=== PATIENT | male | born 1970 | race African-American/Black ===

== ENCOUNTER 2021-03-17 16:23 | Emergency (ER) | payer OTHER ==
[2021-03-17 17:36] VITALS: BP 134/68; PULSE 89; TEMP 99.6; BMI 32.8
[2021-03-19 10:06] LABS: SARS-CoV-2 NAA Detected (Not Detected)
== END 2021-03-17 18:55 | disposition home or self-care (01) ==
LOC: JER 16:23
DX: J06.9 Acute upper respiratory infection, unspecified (principal)
CPT/HCPCS: 87804; 87807; 99283-25; C9803; U0003; U0005

== ENCOUNTER 2023-04-30 10:07 | Emergency (ER) | payer OTHER ==
[2023-04-30 10:13] VITALS: BP 143/96; PULSE 56; RESP 18; TEMP 99; BMI 32.7
[2023-04-30] MEDS ORDERED: TETRACAINE 0.5% OPHTH SOLN 2 ML BOTTLE ONE (11:26)
[2023-04-30] MEDS: TETRACAINE 0.5% OPHTH SOLN 2 ML BOTTLE OD ONE (11:27)
[2023-04-30] MEDS ORDERED: FLUORESCEIN NA 1 EA STRIP ONE (11:28)
[2023-04-30] MEDS: FLUORESCEIN NA 1 EA STRIP OD ONE (11:29)
== END 2023-04-30 11:58 | disposition home or self-care (01) ==
LOC: JERFT 10:07
DX: S05.01XA Injury of conjunctiva and corneal abrasion without foreign body, right eye, initial encounter (principal); W22.8XXA Striking against or struck by other objects, initial encounter; Y93.E5 Activity, floor mopping and cleaning; Y92.219 Unspecified school as the place of occurrence of the external cause
CPT/HCPCS: 99283-25

== ENCOUNTER 2023-11-16 18:54 | Emergency (ER) | payer OTHER ==
[2023-11-16 19:16] VITALS: BMI 36.5
[2023-11-16] MEDS ORDERED: LIDOCAINE 1%/EPI 1:100000 (20 ML MULTI DOSE VIAL) ONE (19:58)
[2023-11-16 22:24] LABS: HIV INTERPRETATION NEGATIVE (NEGATIVE)
[2023-11-16] MEDS ORDERED: BACITRACIN ZINC 15 GM TUBE TOPICAL OINTMENT ONE (22:45)
[2023-11-16] MEDS: BACITRACIN 0.9 GM PACKET TP ONE (22:53)
[2023-11-16] MEDS: LIDOCAINE 1.5%-EPINEPHRINE 1:200,000/PF 30 ML VIAL INF ONE (22:53)
[2023-11-16] MEDS ORDERED: BACITRACIN 0.9 GM PACKET ONE (23:05)
[2023-11-16 23:42] VITALS: BP 122/76; PULSE 80; RESP 19; TEMP 98.9
== END 2023-11-16 23:42 | disposition home or self-care (01) ==
LOC: JER 18:54
PROC: 0YQHXZZ Repair Right Lower Leg, External Approach (ICD-10-PCS; principal; 2023-11-16)
DX: S81.811A Laceration without foreign body, right lower leg, initial encounter (principal); W25.XXXA Contact with sharp glass, initial encounter
CPT/HCPCS: 36415; 86803; 87389; 99283-25

== ENCOUNTER 2023-11-26 13:46 | Emergency (ER) | payer OTHER ==
[2023-11-26 13:51] VITALS: BP 131/80; PULSE 74; RESP 16; TEMP 97.3; BMI 31.9
[2023-11-26] MEDS ORDERED: CEPHALEXIN MONOHYDRATE 500 MG CAPSULE (UD) ONE (15:37)
[2023-11-26] MEDS ORDERED: ACETAMINOPHEN 500 MG TABLET (FP) ONE (15:37)
[2023-11-26] MEDS: ACETAMINOPHEN 500 MG TABLET (FP) PO ONE (15:39)
[2023-11-26] MEDS: CEPHALEXIN MONOHYDRATE 500 MG CAPSULE (UD) PO ONE (15:39)
[2023-11-26] MEDS: BACITRACIN ZINC 15 GM TUBE TOPICAL OINTMENT TP ONE (15:50)
[2023-11-26] MEDS ORDERED: BACITRACIN ZINC 15 GM TUBE TOPICAL OINTMENT ONE (15:50)
== END 2023-11-26 16:53 | disposition home or self-care (01) ==
LOC: JERFT 13:46
DX: L03.116 Cellulitis of left lower limb (principal); Z48.02 Encounter for removal of sutures
CPT/HCPCS: 99283-25

== ENCOUNTER 2023-11-30 08:18 | Observation (INO) | payer OTHER ==
[2023-11-30 08:25] VITALS: BMI 36.5
[2023-11-30] MEDS ORDERED: KETOROLAC TROMETHAMINE 30 MG/1 ML VIAL ONE (09:52)
[2023-11-30] MEDS ORDERED: AMPICILLIN NA/SULBACTAM NA 3 GM/100 ML BAG IVPB ONE (09:53)
[2023-11-30] MEDS: AMPICILLIN NA/SULBACTAM NA 3 GM in SODIUM CHLORIDE 100 ML IVPB ONE (10:02)
[2023-11-30] MEDS: KETOROLAC TROMETHAMINE 30 MG/1 ML VIAL IVPUSH ONE (10:02)
[2023-11-30 10:34] LABS: BASO % 0.5 % (0-2.0); EOS % 1.5 % (0-4.5); HEMATOCRIT 44.9 % (35.4-49); HEMOGLOBIN 15.6 GM/dL (11.7-16.9); LYMPH % 17.9 % (8-40); MCH 30.5 pg (25.7-33.7); MCHC 34.8 g/dl (32.0-35.9); MEAN CELL VOLUME 87.9 fl (80-96); MEAN PLT VOLUME 9.8 fl (7.5-11.1); MONO % 6.3 % (3.8-10.2); NEUT % 73.8 % (42.8-82.8); PLATELET COUNT 170 10^3/uL (134-434); WHITE BLOOD COUNT 5.2 K/mm3 (4.0-10.0)
[2023-11-30 11:07] LABS: CHLORIDE 104 mmol/L (98-107); SODIUM 138 mmol/L (136-145)
[2023-11-30 11:11] LABS: CALCIUM 9.1 mg/dL (8.5-10.1)
[2023-11-30 11:12] LABS: ANION GAP 4 mmol/L (4-13); BLOOD UREA NITROGEN 15.1 mg/dL (7-18); CO2 30 mmol/L (21-32); GLUCOSE,RANDOM 90 mg/dL (74-106)
[2023-11-30] MEDS ORDERED: amLODIPine BESYLATE 2.5 MG TABLET (FP) ONE (12:34)
[2023-11-30] MEDS: amLODIPine BESYLATE 2.5 MG TABLET (FP) PO SCH (12:35)
[2023-11-30] MEDS ORDERED: ACETAMINOPHEN 325 MG TABLET (FP) PO PRN (12:54)
[2023-11-30] MEDS ORDERED: CLINDAMYCIN 600MG PREMIX IVPB 600 MG/50 ML BAG IVPB ONE (18:01)
[2023-11-30] MEDS: CLINDAMYCIN 600MG PREMIX IVPB 600 MG/50 ML BAG IVPB SCH (18:01)
[2023-11-30 22:44] VITALS: RESP 18
[2023-12-01] MEDS: ENOXAPARIN NA (PORCINE) 40 MG/0.4 ML DISP.SYRIN SQ SCH (09:58)
[2023-12-01 10:02] LABS: HEMATOCRIT 43.9 % (35.4-49); HEMOGLOBIN 14.7 GM/dL (11.7-16.9); MCH 30.1 pg (25.7-33.7); MCHC 33.6 g/dl (32.0-35.9); MEAN CELL VOLUME 89.5 fl (80-96); MEAN PLT VOLUME 9.3 fl (7.5-11.1); PLATELET COUNT 158 10^3/uL (134-434); RDW 13.9 % (11.9-15.9); WHITE BLOOD COUNT 4.9 K/mm3 (4.0-10.0)
[2023-12-01 10:28] LABS: POTASSIUM 4.2 mmol/L (3.5-5.1)
[2023-12-01 10:33] LABS: CALCIUM 9.2 mg/dL (8.5-10.1)
[2023-12-01 10:34] LABS: BLOOD UREA NITROGEN 17.6 mg/dL (7-18)
[2023-12-01 14:21] VITALS: BP 127/83; PULSE 60; TEMP 97.2
[2023-12-01] MEDS: ASPIRIN 81 MG CHEWABLE TABLETS PO ONE (14:21)
[2023-12-01] MEDS: CEFTRIAXONE 1 GM in DEXTROSE 5%-WATER - 50 ML IVPB SCH (14:21)
[2023-12-02] MEDS ORDERED: ASPIRIN 81 MG CHEWABLE TABLETS PO SCH (10:00)
== END 2023-12-01 17:30 | disposition home or self-care (01) ==
LOC: JER 08:18 → JERFT 08:18 → INTOOBSV 09:34 → JERBED 09:34 → UNDOADMOB 09:34 → JERBED 11:49 → J5S 18:56
PROVIDERS: ADMIT Internal Medicine; ATTEND Internal Medicine
PROC: 3E03329 Introduction of Other Anti-infective into Peripheral Vein, Percutaneous Approach (ICD-10-PCS; principal; 2023-11-30)
PROC: 3E023GC Introduction of Other Therapeutic Substance into Muscle, Percutaneous Approach (ICD-10-PCS; 2023-11-30)
PROC: 3E0333Z Introduction of Anti-inflammatory into Peripheral Vein, Percutaneous Approach (ICD-10-PCS; 2023-11-30)
DX: L03.116 Cellulitis of left lower limb (principal); S81.802D Unspecified open wound, left lower leg, subsequent encounter; X58.XXXD Exposure to other specified factors, subsequent encounter; I10 Essential (primary) hypertension
CPT/HCPCS: 36415; 73590-TC-LT-FY; 80048; 80061; 83036; 85025; 85027; 86140; 99285-25; G0378